=== PATIENT | male | born 1940 | race Caucasian/White ===

== ENCOUNTER → 2021-01-28 | Outpatient (CLI) | payer MEDICARE ==
--- NOTE | 2021-01-28 13:19 | Diagnostic Imaging Report ---
PROCEDURE: CT chest without contrast. TECHNIQUE: Multiple contiguous axial images were obtained through the chest without the use of intravenous contrast. Auto Exposure Controls were utilized during the CT exam to meet ALARA standards for radiation dose reduction. INDICATION: Report of an abnormal chest x-ray. I do not have that study or the radiological report for that exam. FINDINGS: Within the anterior aspect of the superior segment of the right lower lobe abutting the major fissure, there is a central soft tissue density and peripheral airspace and groundglass nodule in the right lower lobe measuring in aggregate 1.9 x 1.6 cm. Lung cancer cannot be excluded. This is presumed to reflect the offending radiographic density. No other lung mass is found. There is some mild chronic-appearing partly calcified biapical pleural-parenchymal scarring with mild peripheral blebs in the upper lobes at the apices. There is no pathological-appearing axillary, hilar, or mediastinal lymphadenopathy. There is nonaneurysmal aortic atherosclerosis. There is a small amount of frothy debris within the dependent portion of the airway at the level of the supriya, likely secretions. There is no pleural or pericardial effusion. There are nonaneurysmal aortic atherosclerotic calcifications as well as left greater than right coronary artery atherosclerotic calcifications. There is a small hiatal hernia with the visualized upper abdomen showing nonfocal adrenal glands and a partially visualized cyst in the right hepatic lobe. IMPRESSION: 1. An irregular mass-like lesion in the superior segment of the right lower lobe and carcinoma cannot be excluded. If there is a strong clinical suspicion compatible with active pneumonia, a short-term CT followup after a course of treatment would be recommended. Otherwise, proceeding with metabolic PET CT on a nonemergent outpatient basis would be suggested. 2. There are no findings of thoracic kwaku metastatic disease and there are otherwise chronic changes as described. Dictated by: Dictated on workstation # [id number]
== END ==
LOC: RAD FS 10:00
PROVIDERS: ATTEND Nurse Practitioner Family
DX: R91.8 Other nonspecific abnormal finding of lung field (principal); R93.89 Abnormal findings on diagnostic imaging of other specified body structures
CPT/HCPCS: 71250